=== PATIENT | female | born 1955 | race African-American/Black ===

== ENCOUNTER 2024-05-26 18:32 | Emergency (ER) | payer OTHER, SELFPAY ==
--- NOTE | ~2024-05-26 | XR_ITS ---
CLINICAL HISTORY: trauma 2 view right tibia-fibula Comparison: None Findings No fractures or dislocations. No joint effusion. Severe arthritic changes of the patellofemoral joint. IMPRESSION: No acute bony abnormality. This document has been electronically signed by: Anali Lott MD on 05/26/2024 19:34:19
--- NOTE | ~2024-05-26 | XR_ITS ---
CLINICAL HISTORY: trauma 5 view right knee Comparison: None Findings: Bones intact. No dislocations. There are large patellofemoral osteophytes. Moderate knee effusion. No radiopaque foreign body. IMPRESSION: 1. Moderate knee effusion. 2. No acute displaced fracture. This document has been electronically signed by: Anali Lott MD on 05/26/2024 19:26:15
[2024-05-26 18:44] VITALS: BP 175/97; PULSE 90; RESP 20; TEMP 36.3; O2SAT 100
--- NOTE | 2024-05-26 18:48 | ED_ITS ---
HPI - General Adult General Chief complaint: Extremity Injury, Lower Stated complaint: Fall 4days ago rt leg pain Time Seen by Provider: 05/26/24 22:50 Related Data Previous Rx's ?Medication ?Instructions ?Recorded tramadol 50 mg tablet 50 mg PO Q8-10H PRN pain #20 tabs 05/26/24 Allergies Allergy/AdvReac Type Severity Reaction Status Date / Time No Known Allergies Allergy Verified 05/26/24 18:47 [facility] Social History Social History Advance Directives: No Advance Directives Information Provided: Yes Physical Exam ED Vital Signs: Vital Signs - 24 hr 05/26/24 18:44 05/26/24 22:59 05/26/24 23:50 Temperature 97.4 F 97.5 F 97.5 F Pulse Rate 90 68 68 Respiratory Rate 20 16 16 Blood Pressure 175/97 H 154/90 H 154/90 H Pulse Oximetry 100 100 100 Oxygen Delivery Method Room Air Room Air Room Air BMI result Body Mass Index 30.0 Course Course Course Narrative: This is a rapid medical exam performed by Nory Castillo PA-C. The patient is a 68-year-old female who presents after a fall that occurred 4 days ago. Patient states she slipped on the ice, she fell backwards landing on her bottom, she now complains of right lower extremity discomfort, from posterior knee down the owusu. We will order x-rays. The patient is stable and can return to the waiting room pending her full medical assessment. Medications Administered Discontinued Medications Generic Name Dose Route Start Last Admin Trade Name Freq PRN Reason Stop Dose Admin Tramadol HCl 50 mg 05/26/24 23:08 05/26/24 23:23 Tramadol Hcl 50 Mg Tablet PO 05/26/24 23:09 50 mg ONCE ONE Administration Discharge Plan Discharge Clinical Impression: Acute pain of right knee Patient Disposition: Home, Self-Care Instructions: Knee Pain (ED) Additional Instructions: Wear the knee brace for support Use cane Tramadol for pain Follow with orthopedics if not better Prescriptions: New tramadol 50 mg tablet 50 mg PO Q8-10H PRN (Reason: pain) Qty: 20 0RF Referrals: Yony Baez MD [Physician] - 1 week Interventions: ED Discharge Assessment Last Done: 05/26/24 23:50 Discharge Date/Time: 05/26/24 23:50 Print Language: Eritrean
--- OUTSIDE RECORDS SUMMARY | 2024-05-26 22:38 | XMS_ITS | Clinical Summary ---
Author Organization [facility] Address [address] [place] [address] Phone Care Team Providers Care Housing Court Judge Name Role Phone Kate Rivas Primary Care Provider [phone] Allergies No known active allergies Medications acetaminophen (TYLENOL) 325 MG tablet Take 650 mg by mouth every 6 (six) hours if needed for mild pain Active hydroCHLOROthia zide 12.5 MG tablet Take 25 mg by mouth 1 (one) time each day Active lisinopril (PRINIVIL,ZESTR IL) 30 MG tablet Take 30 mg by mouth 1 (one) time each day Active simvastatin (ZOCOR) 40 MG tablet Take 40 mg by mouth every night Active oxyCODONE (Roxicodone) 5 MG immediate release tablet Take 1 tablet (5 mg total) by mouth every 6 (six) hours if needed for moderate pain for up to 5 doses 5 tablet 03/18/2023 Active Active Problems Problem Noted Date Diagnosed Date Osteoarthritis 03/18/2023 Malignant tumor of breast 03/11/2023 Overview (03/11/2023): RIGHT Hyperlipidemia 03/11/2023 Hypertension 03/11/2023 Serum vitamin B12 below reference range 03/11/20 23 Obese class I 03/11/2023 Prediabetes 03/11/2023 Severe anxiety (panic) 03/11/2023 Social History Tobacco Use Types Packs/Day Years Used Date Smoking Tobacco: Never Smokeless Tobacco: Never Alcohol Use Standard Drinks/Week Comments Not Currently 0 (1 standard drink = 0.6 oz pur e alcohol) Comments Unknown Sex and Gender Information Value Date Recorded Sex Assigned at Not on file Legal Sex Female 10:13 AM EST Gender Identity Not on file Sexual Orientation Not on file Last Filed Vital Signs Vital Sign Reading Time Taken Comments Blood Pressure 177/77 03/18/2023 8:28 AM EST Pulse 79 03/18/2023 8:28 AM EST Temperature 36.2 ??C (97.1 ??F) 03/18/2023 8:28 AM ES T Respiratory Rate 16 03/18/2023 8:28 AM EST Oxygen Saturation 97% 03/18/2023 8:28 AM EST Inhaled Oxygen Concentration - - Weight 85.3 kg (188 lb) 03/18/2023 8:28 AM EST Height 162.6 cm (5' 4 ) 03/18/2023 8:28 AM EST Body Mass Index 32.27 03/18/2023 8:28 AM EST Plan of Treatment Health Maintenance Due Date Last Done Comments Breast Cancer Screening 1955 Pneumococcal Vaccine: 65+ Ye ars (1 of 2 - PCV) 06/16/1961 Colorectal Cancer Screening: Annual FOBT 2006 Colorectal Cancer Screening: Colonoscopy 2006 Colorectal Cancer Screening: Sigmoidoscopy 2006 Influenza Vaccine (#1) 2023 Hepatitis B Vaccine Aged Out No longe r eligible based on patient's age to complete this topic Insurance Care Teams Housing Court Judge Relationship Specialty Start Date End Date Kate Rivas [address] [place] [address] PCP - General 03/11/23
[2024-05-26 22:59] VITALS: BP 154/90; PULSE 68; RESP 16; TEMP 36.4; O2SAT 100
[2024-05-26] MEDS: traMADoL HCL 50 MG TABLET PO (23:23)
--- NOTE | 2024-05-26 23:45 | ED_ITS ---
HPI - Extremity Injury (Lower) General Chief Complaint: Extremity Injury, Lower Stated Complaint: Fall 4days ago rt leg pain Time Seen by Provider: 05/26/24 22:50 Source: patient Mode of arrival: ambulatory Limitations: no limitations History of Present Illness ED Provider: HPI Narrative: Apparently patient has slipped and fell on ice 5 days ago landed on her buttocks complaining of pain in the right knee with swelling patient does have history of breast cancer in remission x-ray were done prior to my evaluation showed knee effusion no fracture patient is able to ambulate with pain Related Data Previous Rx's ?Medication ?Instructions ?Recorded tramadol 50 mg tablet 50 mg PO Q8-10H PRN pain #20 tabs 05/26/24 Allergies Allergy/AdvReac Type Severity Reaction Status Date / Time No Known Allergies Allergy Verified 05/26/24 18:47 Review of Systems Review of Systems: Yes all other systems are reviewed and are negative PMFSH Social History Social History Advance Directives: No Advance Directives Information Provided: Yes Physical Exam Vital Signs: Vital Signs: Last Vital Signs Temp 97.5 F 05/26/24 22:59 Pulse 68 05/26/24 22:59 Resp 16 05/26/24 22:59 BP 154/90 H 05/26/24 22:59 Pulse Ox 100 05/26/24 22:59 O2 Del Method Room Air 05/26/24 22:59 BMI result Body Mass Index 30.0 Appearance: Alert. Oriented X3. No acute distress. Eyes: PERRLA, No Nystagmus ENT: Pharynx normal. Oral Mucosa moist Neck: Normal inspection. Neck supple. CVS: Normal heart rate and rhythm. Pulses normal. Respiratory: No respiratory distress. Equal air entry bilateral, no wheezing/rales/rhonchi Abdomen: Soft and nontender. Bowel sounds are present, no mass palpable, no CVA tenderness Skin: Skin warm and dry. Normal skin color. Normal skin turgor. Extremities: No lower extremity edema. No calf tenderness right knee with joint effusion good range of movement tenderness of the joint line Neuro: Oriented X 3. No motor deficit. No sensory deficit.No cerebellar signs , cranial nerves II-XII intact Medications Administered Discontinued Medications Generic Name Dose Route Start Last Admin Trade Name Freq PRN Reason Stop Dose Admin Tramadol HCl 50 mg 05/26/24 23:08 05/26/24 23:23 Tramadol Hcl 50 Mg Tablet PO 05/26/24 23:09 50 mg ONCE ONE Administration Medical Decision Making Medical Decision Making [facility] Narrative: Patient with right knee sprain with mild effusion good range of movement able to ambulatory in the ER knee brace was applied patient does have a cane advised to follow with Orthopedics if pain continues Radiology Impression Discussion of test interpretation with radiology: I have reviewed the radiologist's reading. Radiologist Impression: CLINICAL HISTORY: trauma 5 view right knee Comparison: None Findings: Bones intact. No dislocations. There are large patellofemoral osteophytes. Moderate knee effusion. No radiopaque foreign body. IMPRESSION: 1. Moderate knee effusion. 2. No acute displaced fracture. This document has been electronically signed by: Anali Lott MD on 05/26/2024 19:26:15 Discharge Plan Discharge Clinical Impression: Acute pain of right knee Patient Disposition: Home, Self-Care Instructions: Knee Pain (ED) Additional Instructions: Wear the knee brace for support Use cane Tramadol for pain Follow with orthopedics if not better Prescriptions: New tramadol 50 mg tablet 50 mg PO Q8-10H PRN (Reason: pain) Qty: 20 0RF Referrals: Yony Baez MD [Physician] - 1 week Print Language: Cameroonian
[2024-05-26 23:50] VITALS: BP 154/90; PULSE 68; RESP 16; TEMP 36.4; O2SAT 100
== END 2024-05-26 23:50 | disposition home or self-care (01) ==
PROVIDERS: Emergency Provider Internal Medicine; PCP Nurse Practitioner Family
DX: M25.561 Pain in right knee (principal); M79.604 Pain in right leg
CPT/HCPCS: 73564; 73590; 99283; 99284

== ENCOUNTER → 2024-05-26 18:47 | Outpatient (BNV) | payer OTHER, MEDICAID, SELFPAY | PROVIDERS: PCP Nurse Practitioner Family; Visit Provider Radiology Diagnostic Radiology | DX: M25.561 Pain in right knee (principal); M79.604 Pain in right leg; W00.0XXA Fall on same level due to ice and snow, initial encounter | CPT/HCPCS: 73564; 73590 ==